=== PATIENT | female | born 1975 | race Caucasian/White ===

== ENCOUNTER → 2016-07-04 | Outpatient (CLI) | payer BC, OTHER ==
--- NOTE | 2016-07-05 15:55 | MAM ---
History: Well woman exam. Date of exam: 07/04/2016 Services provided: Bilateral full field digital screening mammography. CAD, the images were reviewed with R2 computer aided detection. FINDINGS: Glandular tissue is scattered glandular contour with increased mammographic density. Study is compared with 2012 exam. Stable for inguinal distribution. No dominant mass, architectural distortion or clustered microcalcification. IMPRESSION: Benign exam Recommendation: Mammography according to the [employer] guidelines BIRAD CATEGORY: 2 BENIGN Electronically signed by: Ginger Hogan MD 07/05/2016 3:54 PM CDT
== END ==
LOC: MAMMO 12:54
PROVIDERS: ATTEND Family Medicine
DX: Z12.31 Encounter for screening mammogram for malignant neoplasm of breast (principal)

== ENCOUNTER → 2016-08-27 | Outpatient (CLI) | payer OTHER, SELFPAY ==
--- NOTE | 2016-08-27 15:42 | US ---
Procedure: US THYROID Exam Date: 08/27/2016 3:00 PM CDT Ordering Provider: CELIO NEWMAN Clinical Indication: THYROID,NODULE Comparison: None Technique: Real-time ultrasonography was obtained of the thyroid gland and customer counter representative images were recorded. Findings: The right lobe of the thyroid gland measures 1.5 x 1.0 x 4.9 cm in CC, AP, and transverse dimensions. There are no nodules in the right lobe of the thyroid gland. The left lobe of the thyroid gland measures 1.3 x 1.3 x 4.8 cm in CC, AP, and transverse dimensions. 4 x 3 mm hypoechoic interpolar cyst. There is also a 1.8 x 1.0 x 0.7 cm heterogeneous thyroid nodule. The thyroid isthmus is of normal thickness. There are no nodules in the thyroid isthmus. Impression: Multiple nodules within the left thyroid lobe, largest measuring 1.8 x 1.0 with heterogeneous internal echogenicities. There may be microcalcifications. Recommend histologic sampling. Electronically signed by: Mark Greene MD 08/27/2016 3:41 PM CDT
== END | disposition home or self-care (01) ==
LOC: US 14:56
PROVIDERS: ATTEND Family Medicine
DX: E04.1 Nontoxic single thyroid nodule (principal)

== ENCOUNTER → 2016-09-18 | Outpatient (CLI) | payer OTHER ==
--- NOTE | 2016-09-18 14:40 | CT ---
EXAM DESCRIPTION: Abdomen/Pelvis w/wo Contrast CLINICAL HISTORY: ABDOMINAL PAIN R10.84 . Generalized abdominal pain with acute onset of nausea, vomiting, and diarrhea. Concern for appendicitis. COMPARISON: None. TECHNIQUE: CT of the abdomen and pelvis was performed before and after intravenous contrast.. Multiple axial images and multiplanar reconstructions were generated. This exam was performed according to our departmental dose-optimization program, which includes automated exposure control, adjustment of the mA and/or kV according to patient size and/or use of iterative reconstruction technique. FINDINGS: Lung bases: The visualized lung bases are clear. Solid organs: No hydronephrosis, hydroureter, or nephrolithiasis. Cholecystectomy clips are present. The liver, spleen, pancreas, kidneys, and adrenal glands are unremarkable. Gastrointestinal: The stomach is decompressed, which limits evaluation. There are a few nondistended fluid-filled loops of small bowel in the lower abdomen and pelvis. The appendix is normal. The distal colon is decompressed. No free fluid or free air. Vascular: Normal. Lymph nodes: No pathologically enlarged lymph nodes are present by CT size criteria. Musculoskeletal and soft tissues: No destructive osseous lesions are present. Urinary bladder and pelvic organs: The urinary bladder is normal. The uterus appears surgically absent. IMPRESSION: 1. Normal CT appearance of the appendix. 2. Nonspecific fluid-filled loops of small bowel in the lower abdomen and pelvis. Correlate for enteritis. 3. Other findings as above. Electronically signed by: Eduardo Bolden MD 09/18/2016 2:40 PM CDT
== END | disposition home or self-care (01) ==
LOC: CT 13:40
PROVIDERS: ATTEND Family Medicine
DX: R10.84 Generalized abdominal pain (principal)

== ENCOUNTER → 2017-03-13 | Outpatient (CLI) | payer OTHER ==
--- NOTE | 2017-03-14 06:14 | US ---
Procedure: US CAROTID DOPPLER BILATERAL Exam Date: 03/13/2017 Ordering Provider: CELIO NEWMAN MD Clinical Indication: DIZZINESS AND GIDDINESS Comparison: None TECHNIQUE : Real-time cerebrovascular ultrasonography was obtained from sternal notch to the angle of the mandible bilaterally utilizing akins scale, color flow and spectral Doppler analysis. Systolic velocity ratios were calculated for internal carotid artery to common carotid artery bilaterally. FINDINGS: RIGHT CAROTID BIFURCATION: No significant atherosclerotic plaque. Peak systolic and end-diastolic velocities in the right internal carotid artery are 68 and 26 cm/s. Internal carotid/common carotid ratio is 0.7. Right vertebral flow is antegrade. LEFT CAROTID BIFURCATION: No significant atherosclerotic plaque. Peak systolic and end-diastolic velocities in the left internal carotid artery are 70 and 20 cm/s. Internal carotid/common carotid ratio is 0.7. Left vertebral flow is antegrade. IMPRESSION: 1. No significant atherosclerotic plaque in each carotid bulb and ICA origin. 2. There is no significant stenosis (normal carotids) at either ICA origin. 3. Bilateral antegrade vertebral artery flow. Electronically signed by: Nicolás Camacho MD 03/14/2017 6:13 AM [facility]
== END ==
LOC: US 10:25
PROVIDERS: ATTEND Family Medicine
DX: R42 Dizziness and giddiness (principal)

== ENCOUNTER → 2017-03-16 | Outpatient (CLI) | payer OTHER ==
--- NOTE | 2017-03-16 13:04 | MRI ---
EXAM DESCRIPTION: Brain w/wo Contrast CLINICAL HISTORY: DIZZINESS . This is a 47-year-old female with focal neurologic symptoms. COMPARISON: None. TECHNIQUE: Pre and postcontrast multiplanar multisequence magnetic resonance imaging of the brain was performed. FINDINGS: * Extra axial spaces: Normal. * Hemorrhage: None. * Ventricular system: Normal. * Basal cisterns: Normal. * Cerebral parenchyma: Unremarkable. * Midline shift: None. * Cerebellum: Normal. * Brainstem: Normal. * Enhancement: Normal. Other: * Calvarium: Normal. * Vascular system: Normal. * Visualized Paranasal sinuses: Unremarkable. * Visualized Orbits: Normal. * Visualized upper cervical spine: Unremarkable. * Sella and skull base: Unremarkable. IMPRESSION: Normal MRI of the brain. Electronically signed by: Kody Max MD 03/16/2017 1:03 PM [facility]
== END ==
LOC: MRI 06:58
PROVIDERS: ATTEND Family Medicine
DX: R42 Dizziness and giddiness (principal)

== ENCOUNTER → 2017-08-31 | Outpatient (CLI) | payer OTHER ==
--- NOTE | 2017-09-02 15:51 | MAM ---
EXAM DESCRIPTION: 3D Screening BILATERAL : Digital Mammography. CLINICAL HISTORY: 42 years Female SCREENING . No complaints. Remote family history of breast cancer. Childbirth. Postmenopausal. No HRT. COMPARISON: 2-D digital screening bilateral study 07/04/2016.. Report from prior examination also reviewed. TECHNIQUE: Bilateral CC and MLO projection full-field images, 3-D tomosynthesis digital mammographic technique. CAD not utilized. FINDINGS: The breast parenchymal density pattern is: Heterogeneously dense breast tissue, which may obscure small masses. No skin thickening or nipple retraction. Bilateral solitary microcalcifications. No focal, stellate mass or density, focal asymmetry , and no suspicious microcalcifications bilaterally. Stable mammograms compared to prior study, taking into account differences in mammographic technique IMPRESSION: BI-RADS CATEGORY: 2 - BENIGN FINDINGS. FOLLOW UP: Routine digital bilateral screening, one year interval from August 2017. Written communication explaining the IMPRESSION and follow-up, will be mailed to the patient and referring health care provider. According to the [employer], yearly mammograms are recommended starting at age 40 and continuing as long as a woman is in good health. Any breast change noted on a breast self-exam should be reported promptly to the patient's healthcare provider. Breast MRI is recommended for women with an approximately 20-25% or greater lifetime risk of breast cancer, including women with a strong family history of breast or ovarian cancer and women who have been treated for Hodgkin's disease. A negative mammographic report should not delay tissue diagnosis in patients with significant clinical history or physical findings. Extremely dense breast tissue limits the sensitivity of digital mammography. Electronically signed by: Peter Laughlin MD 09/02/2017 3:49 PM CDT
== END ==
LOC: MAMMO 14:28
PROVIDERS: ATTEND Family Medicine
DX: Z12.31 Encounter for screening mammogram for malignant neoplasm of breast (principal)

== ENCOUNTER → 2018-03-25 | Outpatient (CLI) | payer OTHER | LOC: GMAH 11:26 | PROVIDERS: ATTEND Nurse Practitioner Family | DX: N95.8 Other specified menopausal and perimenopausal disorders (principal) ==

== ENCOUNTER → 2019-02-10 | Outpatient (CLI) | payer OTHER ==
--- NOTE | 2019-02-14 10:07 | MAM ---
EXAM DESCRIPTION: 3D Screening BILATERAL : Digital Mammography. CLINICAL HISTORY: 43 years Female ANNUAL SCREENING . No complaints or personal history of breast cancer. No remote family history of breast cancer. Remote family history of ovarian cancer. Menarche age 11. First childbirth 17 years old. Postmenopausal 14 years. No HRT. Lifetime risk of developing breast cancer (Tyrer-Cuzick model)(%): 7.1. COMPARISON: Bilateral screening digital breast tomosynthesis 31 August 2017. 2-D digital screening bilateral mammography 04 July 2016. TECHNIQUE: Bilateral CC and MLO projection full-field images, digital tomosynthesis mammographic technique. Bilateral digital 2-D full-field MLO images. CAD not available for tomosynthesis or 2-D images. FINDINGS: The breast parenchymal density pattern is: Heterogeneously dense breast tissue, which may obscure small masses. No skin thickening or nipple retraction. Bilateral solitary microcalcifications. Fibroglandular tissues with larger volume in the upper outer quadrant of the right breast compared to the left breast. Stable since the prior study. No new focal, stellate mass or density, focal asymmetry , and no suspicious microcalcifications bilaterally. Stable mammograms compared to prior study. IMPRESSION: Benign exam. BIRAD CATEGORY: 2 BENIGN FINDINGS. RECOMMENDATIONS: FOLLOW UP: Routine digital bilateral mammographic screening, one year interval from January 2019. Written communication explaining the IMPRESSION and follow-up, will be mailed to the patient and referring health care provider. According to the [employer], yearly mammograms are recommended starting at age 40 and continuing as long as a woman is in good health. Any breast change noted on a breast self-exam should be reported promptly to the patient's healthcare provider. Breast MRI is recommended for women with an approximately 20-25% or greater lifetime risk of breast cancer, including women with a strong family history of breast or ovarian cancer and women who have been treated for Hodgkin's disease. A negative mammographic report should not delay tissue diagnosis in patients with significant clinical history or physical findings. Extremely dense breast tissue limits the sensitivity of digital mammography. Electronically signed by: Peter Laughlin MD 02/14/2019 10:05 AM [facility]
== END ==
LOC: MAMMO 14:03
PROVIDERS: ATTEND Family Medicine
DX: Z12.31 Encounter for screening mammogram for malignant neoplasm of breast (principal)

== ENCOUNTER → 2019-02-17 | Outpatient (CLI) | payer OTHER ==
--- NOTE | 2019-02-18 10:04 | US ---
EXAM DESCRIPTION: Pelvis Transvaginal: Ultrasound. CLINICAL HISTORY: 43 years Female PELVIC PAIN COMPARISON: None. TECHNIQUE: Transcutaneous scanning through the urine filled bladder. Hall-scale and Doppler modes. FINDINGS: Uterus surgically removed Cul-de-sac: No fluid.. Right ovary 1.1 x 0.8 x 1.8 cm. . Normal color Doppler vascularity. No follicles or cysts. No adnexal mass or free fluid. Left ovary 2.1 x 1.7 x 1.2 cm. Normal color Doppler vascularity. Simple follicle measuring 1.3 x 1.1 x 0.8. Second follicle measures 6 x 6 x 5 mm. No cysts. No adnexal mass or free fluid. IMPRESSION: Previous hysterectomy. No free fluid. Small bilateral ovaries with normal vascularity. 2 simple follicles in the left ovary. No adnexal mass. Electronically signed by: Peter Laughlin MD 02/18/2019 10:02 AM [facility]
== END ==
LOC: US 13:00
PROVIDERS: ATTEND Family Medicine
DX: R10.84 Generalized abdominal pain (principal); Z90.710 Acquired absence of both cervix and uterus

== ENCOUNTER → 2019-12-07 | Outpatient (CLI) | payer OTHER ==
--- NOTE | 2019-12-08 08:23 | MRI ---
EXAM DESCRIPTION: Lumbar Spine w/o Contrast : Magnetic Resonance Imaging. CLINICAL HISTORY: RADICULOPATHY COMPARISON: Lumbar radiographs December 2018. TECHNIQUE: Multiplanar, multiple standard sequences, non contrast MRI, lumbar spine. FINDINGS: L5-S1: The disc is well visualized on axial T2 series 501, image 3. Normal signal in the disc with disc space preserved. Posterior flavum ligaments and facet joints (canal elements) demonstrating mild arthrosis, more left. Mild canal narrowing. Mild bilateral foraminal narrowing. L4-L5: Minimal desiccation of the disc and anterior bulging. Disc space preserved. Early arthrosis in the canal elements. AP canal diameter 11 mm. Bilateral mild foraminal narrowing. L3-L4: Disc desiccation and minimal disc space loss. Tiny posterior disc bulge. Minimal hypertrophic changes in the canal elements. AP canal diameter 13 mm. Bilateral foramina are patent. L2-L3: Normal signal in the disc and disc space preserved. Minimal hypertrophic changes in the canal elements. Foramina and canal are patent. L1-L2: Normal signal in the disc and disc space preserved. Minimal hypertrophic changes in the canal elements. Foramina and canal are patent. T12-L1: Normal signal in the disc and disc space preserved. Canal elements unremarkable. Canal and foramina are patent. Conus terminates just above the L1-L2 disc space. Minimal dextroscoliosis mid lumbar spine. Paravertebral soft tissues unremarkable.. Distal cord normal signal and caliber. Normal marrow signal in the vertebral bodies and the posterior elements. Vertebral bodies are not compressed at any level. IMPRESSION: 1. Disc desiccation and minimal disc space loss at L3-L4. Mild canal narrowing. Bilateral foramina are patent. 2. Moderate canal narrowing L4-L5 with minimal desiccation of the disc and anterior bulging. Bilateral mild foraminal narrowing. 3. No herniated discs or nerve root impingement at any level. No canal or foraminal stenosis. Electronically signed by: Peter Laughlin MD 12/08/2019 8:21 AM CDT
== END ==
LOC: MRI 07:04
PROVIDERS: ATTEND Family Medicine
DX: M51.16 Intervertebral disc disorders with radiculopathy, lumbar region (principal)

== ENCOUNTER → 2020-04-02 | Outpatient (CLI) | payer BC | LOC: GMAJ 15:10 | PROVIDERS: ATTEND Family Medicine | DX: E04.1 Nontoxic single thyroid nodule (principal); Z79.899 Other long term (current) drug therapy; Z82.49 Family history of ischemic heart disease and other diseases of the circulatory system ==